=== PATIENT | male | born 1980 | race Caucasian/White ===

== ENCOUNTER → 2019-03-18 07:20 | Outpatient (CLI) | payer OTHER, SELFPAY ==
--- NOTE | 2019-03-18 | DI.MRI.S_ITS ---
PROCEDURE: MR LUMBAR SPINE WO/W CON INDICATIONS: low back pain TECHNIQUE: Noncontrast sagittal T1 spin echo and T2 fast spin echo, sagittal STIR, axial T1 and T2 fast spin echo through the lumbar spine. In cases with scoliosis, additional coronal T2 fast spin echo may be performed. After the administration of contrast, sagittal and axial T1 spin echo with fat saturation through the lumbar spine. COMPARISON: None. FINDINGS: Image quality: Excellent. Alignment and curvature: There is normal bony alignment. Marrow: Marrow is of normal overall signal. No acute vertebral body compression fractures. No suspicious marrow enhancement. Spinal cord: Conus medullaris terminates at the L1 level. Visualized spinal cord demonstrates normal signal, without suspicious enhancement. Paraspinous soft tissues: No paravertebral masses or abnormal enhancement. L1-L2: Normal appearance. L2-L3: Normal appearance. L3-L4: Normal appearance. L4-L5: Normal appearance. L5-S1: Normal appearance except for a small degree of degenerative osteoarthritic change at the facet joints, symmetric bilaterally, without appreciable facet hypertrophy and nerve root impingement.. IMPRESSION: Minimal degenerative change at the facet joints at L5-S1. No spinal or foraminal stenosis. No disc herniation found. A definite source of persistent low back pain is not identified otherwise. Dictated by: Brendon العلي M.D. on 03/18/2019 at 14:25 Approved by: Brendon العلي M.D. on 03/18/2019 at 14:29
== END ==
PROVIDERS: Visit Provider Internal Medicine
DX: M54.5 Low back pain (principal); F43.10 Post-traumatic stress disorder, unspecified
CPT/HCPCS: 72158; A9579

== ENCOUNTER → 2019-03-31 10:04 | Outpatient (CLI) | payer OTHER, SELFPAY ==
--- NOTE | 2019-03-31 | DI.MRI.S_ITS ---
PROCEDURE: MR PELVIS WO CON INDICATIONS: NO CHARGE Low back pain TECHNIQUE: Noncontrast coronal and axial T1 spin echo and STIR through the bony pelvis. COMPARISON: [facility], MR, MR LUMBAR SPINE WO/W CON, 03/18/2019, 7:38. FINDINGS: Image quality: Excellent. Bones: Bone marrow of the pelvic ring, sacrum, and proximal femurs show normal signal throughout. No intraosseous lesions or fractures identified. Signal intensity of the sacroiliac joints appears grossly intact bilaterally Soft tissues: Visualized muscles demonstrate normal bulk and internal signal. No free pelvic fluid. Bladder wall thickness is normal. Genitourinary structures and bowel loops appear normal where visualized. IMPRESSION: Normal MR appearance of both sacroiliac joints. Dictated by: Bryson Mendez M.D. on 03/31/2019 at 13:13 Approved by: Bryson Mendez M.D. on 03/31/2019 at 13:18
== END ==
PROVIDERS: Visit Provider Internal Medicine
DX: M54.5 Low back pain (principal); F43.10 Post-traumatic stress disorder, unspecified
CPT/HCPCS: 72195

== ENCOUNTER 2020-10-10 10:52 | Emergency (ER) | payer OTHER, SELFPAY ==
[2020-10-10 11:20] VITALS: BP 131/86; PULSE 62; RESP 18; TEMP 36.8; O2SAT 97
--- NOTE | 2020-10-10 11:43 | ED.GENADULT ---
HPI - General Adult General Chief complaint: Extremity Injury, Upper Stated complaint: Finger cut Time Seen by Provider: 10/10/20 11:38 Source: patient Mode of arrival: Ambulatory Limitations: no limitations History of Present Illness HPI narrative: Otherwise healthy 40-year-old male here for evaluation of a cut to his right middle finger. He states that prior to arrival he was cleaning out the garage when he cut his finger with a pair of scissors. He did clean it out with water prior to arrival. Related Data Allergies Allergy/AdvReac Type Severity Reaction Status Date / Time No Known Drug Allergies Allergy Verified 10/10/20 11:27 Review of Systems Musculoskeletal Musculoskeletal: Denies tingling Comments: Pain over cut right middle finger Integumentary/Breasts Comments: Cut to right middle finger Neurologic Neurologic: Denies tingling Hematologic/Lymphatic On Anticoagulants: No Patient History Medical History Healthy adult Social History Smoking Status: Never smoker Smoking Status: Never smoker Substance Use Type: does not use Exam Initial Vital Signs Initial Vital Signs: Vital Signs Temperature 98.2 F 10/10/20 11:20 Pulse Rate 62 10/10/20 11:20 Respiratory Rate 18 10/10/20 11:20 Blood Pressure 131/86 10/10/20 11:20 Pulse Oximetry 97 10/10/20 11:20 Const General: cooperative and healthy appearing HENMT Head: normal to inspection and normocephalic Resp Effort & Inspection: normal respiratory effort Skin Other: Patient with a 2 cm ?V ?laceration in between the PIP and the IP joint of the right middle finger volar aspect. No active bleeding. Neuro General: patient alert and patient awake Extrem Other: Full range of motion right middle finger Procedures Laceration Repair Laceration 1: Site: hand Side (If applicable): right Size (cm): 2 Description: flap Depth: simple, single layer Skin layer closed with: dermabond Course Vital Signs Vital signs: Vital Signs - 8 hr 10/10/20 11:20 Temperature 98.2 F Pulse Rate 62 Respiratory Rate 18 Blood Pressure 131/86 Pulse Oximetry 97 Medical Decision Making MDM Narrative Medical decision making narrative: Neurovascular intact, laceration closed as described above. Patient was given care instructions and return precautions. He expressed understanding agreement. Discharge Plan Departure Patient Disposition: Home Clinical Impression: Laceration of hand Instructions: DI for Laceration Repair-Skin Glue Activity Restrictions/Additional Instructions: You can wash your hands like normal and use soap and water like normal. By the time the Dermabond wears off the wound should be healed. Contact your primary provider for follow-up. Return to the emergency department for any new or worsening symptoms
--- NOTE | 2020-10-10 11:56 | PC.NURSE ---
Provider Dermabonded patient finger. Patient cleaned [employer] DES[employer]. Tolerated well
== END 2020-10-10 11:57 | disposition home or self-care (01) ==
PROVIDERS: Emergency Provider Emergency Medicine
DX: S61.212A Laceration without foreign body of right middle finger without damage to nail, initial encounter (principal); W26.8XXA Contact with other sharp object(s), not elsewhere classified, initial encounter
CPT/HCPCS: 12001; 99282